=== PATIENT | male | born 1940 | race Caucasian/White ===

== ENCOUNTER 2025-02-28 13:14 | Inpatient (IN) | payer OTHER, MEDICARE ==
[~2025-02-28] VITALS: Ht 170.2 cm; Wt 81.6 kg
--- NOTE | 2025-02-28 13:34 | ELECTROCARDIOGRAPH REPORT ---
[facility] Test Date: 2025-02-28 Test Time: 13:31:52 Pat Name: NIDHI BOONE Department: [facility]-ER Patient ID: [facility]-[id number] Room: Gender: M Substitute School Nurse: : 1940 Requested By: TERESITA ALTAMIRANO Order Number: [id number] Reading MD: Measurements Intervals [place] Rate: 100 P: 48 AR: 206 QRS: 22 QRSD: 93 T: 141 QT: 338 QTc: 436 Interpretive Statements Sinus tachycardia LAE, consider biatrial enlargement Probable anteroseptal infarct, recent Lateral leads are also involved Baseline wander in lead(s) V2,V3 Please click the below link to view image of tracing.
[2025-02-28 13:41] LABS: MEAN PLATELET VOLUME 8.3 FL (7.4-10.4); RED CELL DISTRIBUTION WIDTH 14.9 % (11.5-14.5)
--- NOTE | 2025-02-28 13:45 | Physician Documentation ---
History of Present Illness ~ Chief Complaint: Vomiting Stated Complaint: NAUSEA Time Seen by MD: 13:24 Source: patient, EMS, EMS notes reviewed Mode of Arrival: EMS Exam Limitations: no limitations HPI Chief Complaint: Nausea vomiting Caveat: None Independent Historians: Paramedics History of Present Illness: Patient is an 85-year-old man brought in from home by paramedics for nausea and vomiting began earlier this morning. Patient says that he vomited twice. Paramedics gave Zofran to relieve his nausea. Nausea appears to have resolved. Patient denies any abdominal pain unless he is tries to sit up or stand. Patient has had multiple abdominal surgeries in the past and history of bowel obstructions. Review of systems: All systems were reviewed and are negative except for what is indicated in the history of present illness. Past Medical History: HTN, BPH, HLD Past Surgical History: Multiple abdominal surgeries Social History: No tobacco use, no alcohol use, no drug use Medications: Reviewed as documented Nursing Notes Allergies: Reviewed as documented in Nursing Notes Medication Reconciliation Allergies: Coded Allergies: No Known Allergies (Unverified , 02/28/25) Review of Systems All Other Systems at this time: Reviewed and Negative ROS Patient denies any other acute symptoms other than above. All other systems are negative Physical Exam Vital Signs: Temperature: 99.7, Source: Oral, Heart Rate: 100, Respiratory Rate: 15, BP: 137/64, Pulse Oximetry: 93, Weight: 81.600 Oxygen Flow Rate: 0 Pulse Oximetry Reflects: adequate oxygenation Physical Exam General Appearance: No distress, chronically ill-appearing HEENT: Normal OP, moist oral mucosa, PERRL, EOMI Neck: supple, normal ROM, trachea midline Pulmonary: No respiratory distress, CTA, BS equal Cardiac: RRR, no murmur, rub or gallop, GI: nondistended, soft, nontender, normal bowel sounds, no guarding, no rebound, dull to percussion, many abdominal wall scars Extremities: normal ROM, no swelling, non-tender Skin: intact, dry, warm, no rashes Neuro: AAOx3, speech is clear, no focal motor weakness Psych: normal affect, good eye contact, no apparent hallucination, normal speech Progress Results/Orders Results/Orders Orders - TERESITA ALTAMIRANO MD Urinalysis, Cult If Indicated (02/28/25 13:25) Ct Abdomen Pelvis (02/28/25 13:25) Monitor (02/28/25 13:25) Saline Lock (02/28/25 13:25) Nothing By Mouth (02/28/25 Dinner) Hs Troponin I W Calculations (02/28/25 15:25) Hs Troponin I W Calculations (02/28/25 16:25) Straight Cath For Urine Sample (02/28/25 13:25) Chest,Single View (02/28/25 13:45) Page Hospitalist (02/28/25 16:21) Fill Out Med Reconciliation (02/28/25 16:21) Completed Orders - TERESITA ALTAMIRANO MD Cbc/Diff (02/28/25:25) Lipase (02/28/25:25) Electrocardiogram (02/28/25:25) Ct Abdomen Pelvis (02/28/25 13:25) Hs Troponin I W Calculations (02/28/25:25) CMP (02/28/25 13:25) Chest,Single View (02/28/25 13:45) Furosemide Inj (Lasix Inj) (02/28/25 16:20) PBNP (02/28/25 13:27) Medications Received in ER Medications (Trade) Dose Ordered Sig/Zonia Route PRN Reason Start Time Stop Time Status Last Admin Dose Admin (Lasix inj) 60 mg ONCE ONCE IV 02/28/25 16:20 02/28/25 16:21 DC 02/28/25 16:47 60 MG Vital Signs 02/28/25 02/28/25 02/28/25 02/28/25 13:22 13:24 14:14 15:21 Temp 99.7 Pulse 99 100 100 Resp 15 15 15 22 B/P (MAP) 167/64 137/64 (88) 147/72 (97) Pulse Ox 94 93 98 O2 Flow Rate 0 0 0 Laboratory Tests Test 02/28/25 13:27 02/28/25 16:25 White Blood Count 23.0 H Red Blood Count 5.04 Hemoglobin 15.1 Hematocrit 44.2 Mean Corpuscular Volume 87.7 Mean Corpuscular Hemoglobin 30.0 Mean Corpuscular Hemoglobin Concent 34.2 Red Cell Distribution Width 14.9 H Platelet Count 127 L Mean Platelet Volume 8.3 Neutrophils (%) (Auto) 87.2 H Lymphocytes (%) (Auto) 2.0 L Monocytes (%) (Auto) 10.5 Eosinophils (%) (Auto) 0 Basophils (%) (Auto) 0.3 Neutrophils # (Auto) 20.1 H Lymphocytes # (Auto) 0.5 L Monocytes # (Auto) 2.4 H Eosinophils # (Auto) 0.0 Basophils # (Auto) 0.1 CBC Comment Sodium Level 132 L Potassium Level 3.8 Chloride Level 97 L Carbon Dioxide Level 23.9 L Anion Gap 11 Blood Urea Nitrogen 25 H Creatinine 1.48 H Estimated GFR/1.73 m2 45 BUN/Creatinine Ratio 16.9 Glucose Level 159 H Calcium Level 8.7 Total Bilirubin 1.7 H Aspartate Amino Transf (AST/SGOT) 23 Alanine Aminotransferase (ALT/SGPT) 22 Alkaline Phosphatase 79 Troponin I High Sensitivity 28 Pro-B-Type Natriuretic Peptide 4021 H Total Protein 7.2 Albumin 3.2 L Globulin 4.0 Albumin/Globulin Ratio 0.8 L Lipase 16 Chemistry Comments Medical Decision Making Findings Differential diagnosis includes but is not limited to: Small-bowel obstruction, GI bleed, sigmoid volvulus, pancreatitis, gastritis, cholecystitis, appendicitis, dehydration, electrolyte abnormalities, acute kidney injury, acute coronary syndrome, congestive heart failure EKG independent interpretation: Performed at 1:31 p.m.. Sinus tachycardia, heart rate 100, normal axis, Q-waves in V1 through V4 left atrial enlargement, nonspecific ST-T segments Chest x-ray, single view, indication: Abdominal pain Independent interpretation: Pulmonary vascular congestion, normal mediastinum, mild cardiomegaly. CTA abdomen pelvis without IV contrast, indication: Nausea and vomiting Impression: Moderate volume stool in the rectum. Otherwise, no acute finding. Laboratory data independent interpretation: CBC: Leukocytosis [id number] CMP: Renal insufficiency with a creatinine of 1.48 and a BUN of 25. Patient's baseline is unknown 1st troponin: 28 Urinalysis: Pending Emergency department course/medical decision-making: Patient presents with nausea and vomiting that resolved after paramedics gave him Zofran 4 mg IV. Cause with the nausea and vomiting is unknown. Patient's abdominal exam is unremarkable. Patient does have a leukocytosis for unexplained reasons. Urinalysis is pending. CT scan of the abdomen and pelvis was negative acute. Patient is found to have congestive heart failure and renal insufficiency. It is unknown if these are new diagnoses. Patient is given Lasix 60 mg IV. Recommend admission for continued treatment of heart failure, renal insufficiency and potential infection resulting in the leukocytosis. Consultation/communications: 4:50 p.m.: Case discussed with the resident hospitalist Dr. Love. He will evaluate the patient for admission. Departure Time of Disposition: 16:55 Disposition: 09 ADMITTED INPATIENT Admitted to Inpatient Unit: to hospitalist Admission Level of Care: Med/Surg with Tele Impression: Primary Impression: Acute congestive heart failure Qualified Codes: I50.9 - Heart failure, unspecified Additional Impressions: Generalized weakness Nausea and vomiting Qualified Codes: R11.2 - Nausea with vomiting, unspecified Renal insufficiency Leukocytosis Qualified Codes: D72.829 - Elevated white blood cell count, unspecified Education Educated: Patient Educated regarding: diagnosis, treatment Signature Scribe Signature: No scribe Attestation: No scribe TERESITA ALTAMIRANO MD Feb 28, 2025 13:45
[2025-02-28 13:58] LABS: CREATININE 1.48 MG/DL (0.60-1.10); TOTAL CARBON DIOXIDE 23.9 MMOL/L (24-32); eCRCL 34 ML/MIN; eGFR 45 ML/MIN
--- NOTE | 2025-02-28 14:09 | RADIOLOGY REPORT ---
CHEST RADIOGRAPH Indication: abdominal pain, vomiting Technique: Single frontal view of the chest was obtained Comparison: None FINDINGS: Lines and Tubes: None Lungs: No focal consolidation. Pleura: No effusion. No pneumothorax. Cardiomediastinal contours: Cardiomegaly. Bones: No acute osseous abnormality. IMPRESSION: Cardiomegaly with CHF.
--- NOTE | 2025-02-28 14:30 | RADIOLOGY REPORT ---
Exam: CT CT ABDOMEN PELVIS History: Abdominal Pain COMPARISON: None Technique: Multidetector spiral CT of the abdomen and pelvis was performed from lung bases to pubic s ymphysis. Intravenous contrast was administered during this examination. Portal venous imaging was o btained. Axial, coronal and sagittal multiplanar reformats were performed by the technologist on a [employer] workstation. Radiation Dose : 1. Abdomen/Pelvis: CTDIvol 17.3mGy, DLP 902.7 mGy*cm. Findings: Lung Bases: No acute or significant lung base finding. Normal heart size. No pleural or pericardial effusion. Liver: The liver is normal in size. No focal lesions. Normal hepatic vascular enhancement. Gallbladder and Biliary Tree: Unremarkable Spleen: Unremarkable Pancreas: The pancreas is normal in appearance without focal lesions or abnormal enhancement. Adrenal Glands: Unremarkable Kidneys: No hydronephrosis. Left midpole cyst measures 3.1 cm. Bladder: Unremarkable Bowel: The stomach is grossly normal in appearance. Diverticulosis. Moderate stool in the rectum. The appendix is not visualized; however, no secondary findings of acute appendicitis identified. Ascites: Absent Lymphadenopathy: No mesenteric, retroperitoneal or periportal lymphadenopathy. Abdominal Wall and Mesentery: Unremarkable. Vasculature: The visualized abdominal aorta is normal in size and caliber. There is calcified atheros clerotic plaque involving the aorta and its branches. Abdominal and pelvic vessels demonstrate normal enhancement. Pelvic Organs: Penile pump in-situ. Musculoskeletal: No aggressive focal bony lesions, acute fractures or dislocation. Degenerative changes of the spine. IMPRESSION: Moderate volume stool in the rectum. Otherwise, no acute finding.
[2025-02-28 16:45] LABS: PRO BRAIN NATRIURETIC PEPTIDE 4021 PG/ML (0-450)
[2025-02-28] MEDS: furosemide 10 MG/1 ML 10ml inj IV ONE (16:47)
[2025-02-28] MEDS ORDERED: potassium Cl 20 mEq SR tablet PO PRN ×2 (16:55)
[2025-02-28] MEDS ORDERED: ondansetron/PF 4mg/2ml inj IV PRN (16:55)
[2025-02-28] MEDS ORDERED: potassium Cl 40MEQ/1/2NS 520ml 520 ML IV PRN (16:55)
[2025-02-28] MEDS ORDERED: magnesium sulf-water 2g/50mL 50 ML IV PRN (16:55)
[2025-02-28] MEDS ORDERED: magnesium Cl slow-release 64mg tablet PO PRN (16:55)
[2025-02-28] MEDS ORDERED: magnesium sulf-water 4G/100mL 100 ML IV PRN (16:55)
[2025-02-28] MEDS ORDERED: magnesium hydroxide 30ml (MOM) UD suspension PO PRN (16:55)
[2025-02-28] MEDS ORDERED: mag hydrox/Alum hydrox/simeth 30ml oral suspension PO PRN (16:55)
[2025-02-28 17:50] LABS: LEUKOCYTE ESTERASE ,URINE SMALL (Neg); NITRITES, URINE NEGATIVE (Neg); OCCULT BLOOD,URINE MODERATE (Neg)
[2025-02-28] MEDS ORDERED: PRIM250T8 PO (17:54)
[2025-02-28] MEDS ORDERED: MULT-1085 PO (17:54)
[2025-02-28] MEDS ORDERED: FINA5TAB11 PO (17:55)
[2025-02-28 18:00] LABS: UA COLLECTION TYPE URINAL
[2025-02-28 18:02] LABS: MUCUS STRANDS NONE SEEN /LPF (Neg); SQUAMOUS EPITHELIAL CELL,UR FEW /LPF (FEW)
[2025-02-28] MEDS ORDERED: CALC500T63 PO (18:03)
[2025-02-28] MEDS ORDERED: TIOT4MIS8 (18:03)
[2025-02-28] MEDS ORDERED: TAMS-55 PO (18:03)
[2025-02-28] MEDS ORDERED: LISI20TA28 PO (18:03)
[2025-02-28] MEDS ORDERED: CLON-850 PO (18:03)
[2025-02-28] MEDS ORDERED: CARV25TA2 PO (18:03)
[2025-02-28] MEDS ORDERED: ASPI-1265 PO (18:03)
[2025-02-28] MEDS ORDERED: OXYB5TAB21 PO (18:03)
[2025-02-28] MEDS ORDERED: HYDR12.55 PO (18:03)
[2025-02-28] MEDS ORDERED: ATOR40TA PO (18:03)
--- NOTE | 2025-02-28 18:31 | HISTORY AND PHYSICAL-Residence ---
History & Physical Providers to CC Resident Creating Document: MERCEDES HURTADOTRUE, RES ~ History of Present Illness Primary Medical Doctor: [facility] Reason for Admit\Complaint: Mechanical fall History of Present Illness 85-year-old male patient with past medical history of hypertension, coronary artery disease s/p coronary stent, actinic keratosis, dyslipidemia, urinary incontinence, came to the hospital after a mechanical fall. The patient states that in the morning while he was walking from the living room to nephron door of his apartment he slipped and fell down hitting the back side of his head. As per patient the patient was trying to stand up and due to the pressure that he was exerting on his abdomen he started having some pain. The patient states that the house nurse saw him in the floor who decided to call to the ambulance and the patient was brought to the hospital. As per EMS the patient had an episode of vomiting while he was transported to the hospital. The patient normally uses a cane for walking but he was not using it this morning when he was trying to go to the front door. The patient denies losing consciousness, loss of control of urine or bowel movements. The patient currently denies any chest pain, shortness of breath, palpitations. Allergies: Coded Allergies: No Known Allergies (Unverified , 02/28/25) Home Medications Home Medications Active Reported Flomax* (Tamsulosin HCl) 0.4 Mg Cap.sr.24h 1 Cap PO DAILY 30 Days Stiolto Respimat Inhaler (10) (Tiotropium Br/Olodaterol HCl) 2.5 Mcg-2.5 Mcg/Actuation Mist.inhal Klonopin (Clonazepam) 0.5 Mg Tablet 0.5 Mg PO BID Oxybutynin Chloride 5 Mg Tablet 10 Mg PO Q12H 30 Days Lipitor* (Atorvastatin Calcium) 40 Mg Tablet 1 Tab PO DAILY 30 Days Aspirin 81 Mg Tab.chew 1 Tab PO DAILY 30 Days Lisinopril 20 Mg Tablet 1 Tab PO DAILY 30 Days Hydrochlorothiazide 12.5 Mg Tablet 1 Tab PO DAILY 30 Days Carvedilol 25 Mg Tablet 1 Tab PO Q12H 30 Days Calcium (Calcium Carbonate) 500 Mg Tablet 250 Mg PO DAILY 30 Days PROSCAR tablet (Finasteride) 5 Mg Tablet 5 Mg PO STEPHANY MYSOLINE tablet (Primidone) 250 Mg Tablet 50 Mg PO DAILY 30 Days Multi Vitamin Daily (Multivitamin) 1 Each Tablet 1 Tab PO DAILY 30 Days Past Medical History Past Medical History Hypertension taking carvedilol 25 mg b.i.d., hydrochlorothiazide/lisinopril 12.5/20 mg daily. Coronary artery disease S/P LAD stent in 1959. Actinic keratosis for which he uses fluorouracil cream. Obstructive sleep apnea for which he uses CPAP at night. Dyslipidemia taking atorvastatin 40 mg daily. Benign prostatic hyperplasia taking finasteride 5 mg daily, tamsulosin 0.4 mg daily. Anxiety taking clonazepam 0.5 mg b.i.d.. Urinary incontinence taking oxybutynin 10 mg daily. Past Surgical History Surgical History Comment Small bowel obstruction s/p surgical repair. Appendectomy. Coronary artery disease s/p coronary stent. Past Social History Smoking: Less than 1 pack/day (As per patient he smokes half to one pack a day for at least 40 years.) Alcohol Use: Rarely (As per patient he rarely drinks one beer a week. He used to be a heavy drinker but he quit in 1979.) Drug Use: Marijuana (He endorsed the use of marijuana several years ago.) Lives with: Alone Occupation: retired ([employer]) ROS Constitutional: Reports: other (The patient endorses fatigue for several years.); Denies: no symptoms reported, see HPI, chills, diaphoresis, fever, malaise, weakness Eyes: Denies: no symptoms reported, see HPI, pain, discharge, blurred vision, double vision, itching, photophobia, redness, tearing, other ENT: Denies: no symptoms reported, see HPI, ear pain, ear bleeding, ear discharge, hearing loss, ear ringing, nose pain, nose bleeding, nose congestion, nose discharge, throat pain, throat swelling, voice change, mouth pain, mouth bleeding, mouth swelling, other Respiratory: Reports: SOB with exertion (The patient endorses some shortness of breaths with walking approximately more than 100 ft.); Denies: no symptoms reported, see HPI, cough, orthopnea, shortness of breath, SOB at rest, stridor, wheezing, hemoptysis, pain with breathing, other Cardiovascular: Denies: no symptoms reported, see HPI, chest pain, left arm pain, diaphoresis, lightheadedness, syncope, edema, palpitations, irregular heart rate, other Gastrointestinal: Denies: no symptoms reported, see HPI, abdomen distended, abdominal pain, nausea, vomiting, diarrhea, constipated, melena, hematemesis, hematochezia, rectal bleeding, rectal pain, dysphagia, poor appetite, poor fluid intake, other Genitourinary: Reports: frequency (He endorses increased urinary frequency.); Denies: no symptoms reported, see HPI, burning, discharge, dysuria, flank pain, hematuria, incontinence, pain, decreased urine output, urgency, other Male Genitalia: Denies: no symptoms reported, see HPI, penile discharge, penile sore, testicular pain, testicular swelling, other Neurological: Denies: no symptoms reported, see HPI, speech problem, headache, dizziness, fainting, tingling, left sided numbness, right sided numbness, left sided weakness, right sided weakness, problems walking, unable to move lower ext, unable to move upper ext, petit mal seizures, tonic-clonic seizures, cognitive dysfunction, other Musculoskeletal: Denies: no symptoms reported, see HPI, pain, swelling, back pain, gout, joint pain, joint swelling, muscle pain, muscle swelling, muscle stiffness, neck pain, other Integumentary: Denies: no symptoms reported, see HPI, rash, itching, lesions, lumps, bruise(s), wound(s), laceration(s), dryness, change in color, other Allergic/Immunologic: Denies: no symptoms reported, see HPI, hives, itching, frequent infections, difficulty healing, other Hematologic/Lymphatic: Denies: no symptoms reported, see HPI, anemia, blood clots, easy bleeding, easy bruising, swollen glands, other Endocrine: Denies: no symptoms reported, see HPI, excessive sweating, flushing, intolerance to cold, intolerance to heat, increased hunger, increased thrist, increased urine, unexplained weight gain, unexplained weight loss, other Psychiatric: Denies: no symptoms reported, see HPI, depression, anxiety, sleeplessness, hopeless, suicidal, hallucinations, other Exam Vitals: Vital Signs Date Time Temp Pulse Resp B/P (MAP) Pulse Ox O2 Delivery O2 Flow Rate FiO2 02/28/25 17:09 100 30 150/55 (86) 97 02/28/25 15:21 0 02/28/25 13:22 99.7 Physical exam: General: Well alert, well oriented, not confused, not agitated, not in acute distress, well cooperated during the physical. HEENT: Conjunctive are pink, sclerae clear, no icterus, pupil is equal in both sides, reactive to light, no ear discharge, no pharyngeal erythema or an edema. Neck: Supple, no JVD, no lymphadenopathy and thyromegaly. Chest: Equal air entry on both lungs, no additional sounds no rhonchi no wheezing at the moment. Cardiovascular: S1-S2 regular sinus rhythm and, regular rate, no gallops, no rubs, no murmurs Abdomen: No visible peristalsis, Bowel sounds present on auscultation, soft, mild tenderness in the hypogastrium, no guarding, no rigidity, abdominal scar from previous surgeries. Extremities: No obvious deformities, no pitting edema bilaterally, capillary refill intact, peripheral pulsations are intact on both sides Central Nervous System: No focal neurological deficits, no motor or sensory weakness in all 4 extremities, could move all 4 extremities, 2+ deep tendon reflexes, negative Babinski. Musculoskeletal: No joint swelling, deformities, inflammations, and no scoliosis and back tenderness Skin: Warm and dry. Diagnostic Data Last Recorded Lab Results: 02/28/25 1327 02/28/25 1327 Counseling Services Smoking & Tobacco Cessation: 3-10 Minutes (I spent 12 minutes discussing smoking cessation with the patient including the risk of continuing to smoke: Lung cancer, stroke, heart attack, poor wound healing, increased in fascial wrinkling, cigarette smoke also leads a foul smell on clothing and fabrics, risk of MRSA skin infections. The expense of smoking cigarettes and how cigarettes have been scientifically engineered to be as addictive as humanly possible. ) Advance Care Planning Advanced Care plannin - 30 Minutes (I spent a total of 17 minutes on reviewing various resuscitative measures/ACP with the patient at the time of admission. The patient has decided on a full code status.) Additional Plan Assessment and plan: 85-year-old male patient came to the hospital after a mechanical fall. Mechanical fall: Head concussion: A: The patient endorsed that he had a mechanical fall in the morning hitting the back side of his head. The patient had one episode of vomiting while the patient was transferred to the emergency department. Plan: Follow-up head CT scan. Sepsis secondary to urinary tract infection/cystitis: Sepsis criteria: (heart rate> 90, RR> 20, WBC: 23.0, presence of source of infection): A: Urinalysis positive for urinary tract infection: Moderate occult blood, protein 100, 3+ bacteria, WBC 30-50, leukocyte esterase present. The patient endorsed increased urinary frequency. Mild tenderness in the hypogastrium on physical exam. Plan: Follow-up urine culture. Follow-up blood culture. Follow-up ESR, CRP, procalcitonin. Ceftriaxone 1 g IV daily. Culturelle [id number] mmu b.i.d. Possible acute kidney injury likely secondary to dehydration: A: Creatinine 1.48, unknown baseline creatinine. BUN/creatinine ratio 16.9, BUN 25. Plan: Follow-up urine lytes. NS at 80 mL/hour. Continue to monitor CMP. Mild hyponatremia: A: Sodium 132. Plan: Follow-up serum osmolality. NS at 80 mL/hour. Hypertension: A: Current blood pressure 174/60. Plan: Continue lisinopril 20 mg daily. Holding hydrochlorothiazide due to hyponatremia. H/O CAD s/p coronary stent: Continue aspirin 81 mg daily. H/o dyslipidemia: Follow-up lipid panel. Continue atorvastatin 40 mg daily. H/o GLEN: CPAP at night. H/o overactive bladder: Continue oxybutynin 10 mg daily. H/o tremor: Continue primidone 250 mg daily. H/o BPH: Tamsulosin 0.4 mg daily. Finasteride 5 mg daily. Code status: Full code DVT prophylaxis: SCDs, heparin. Analgesia/sedation: Tylenol Line/tube: PIV GI prophylaxis: Protonix Nutrition: Regular diet. PT: Ordered. Prognosis: Guarded Disposition: The patient will be admitted to PCU with telemetry. True Hurtado Internal Medicine Resident [facility] Date of Service: Feb 28, 2025 Billing Provider: TAM SHINE MD Common Visit Codes: 93707-HPFBPXT INP/OBS CARE (HIGH) Secondary Visit Codes: 10585-GJLPZPME CARE PLAN 30 MINUTES TRUE KING, RES Feb 28, 2025 18:31 TAM SHINE MD Mar 02, 2025 06:19
--- NOTE | 2025-02-28 18:48 | RADIOLOGY REPORT ---
CLINICAL HISTORY: head trauma TECHNIQUE: Helical imaging carried out from skull base to vertex without intravenous contrast. This e xam was performed according to our departmental dose optimization program. Up-to-date CT equipment an d radiation dose reduction techniques are utilized as appropriate. CTDIVol: 58.6 mGy DLP: 1046.88 mGy-cm WID: COMPARISON: None FINDINGS: Mild cerebral volume loss with concordant prominence of the subarachnoid spaces and ventricles. Moder ate patchy low attenuation in the cerebral white matter consistent with nonspecific white matter dise ase. Chronic lacunar infarct in the right basal ganglia. There is no midline shift or mass effect. The [place] white matter interfaces are maintained. The basal cisterns are patent. There is no evidence of acute intracranial hemorrhage or extra-axial fluid ender ection. The mastoid air cells and visualized paranasal sinuses are well-aerated. Prior ocular lens re placement IMPRESSION: No acute intracranial abnormality. Mild cerebral volume loss and moderate chronic microvascular ischemic change. Chronic lacunar infarct in the right basal ganglia.
[2025-02-28] MEDS: normal saline 1000ml 1,000 ML IV SCH (18:50)
[2025-02-28] MEDS ORDERED: ipratropium/albuterol 3ml nebule NEB PRN (19:00)
--- NOTE | 2025-02-28 19:06 | CARDIOLOGY REPORT ---
APPROVED REPORT EXAM: Comprehensive 2D, Doppler, and color-flow Echocardiogram. Patient Location: ED10 Blood Pressure: 150/55 mmHg Heart Rate: 98 bpm Rhythm: NSR Indications CHF Pro BNP 4021 Alumni Secretary is Anai Whaley MD No previous echo 2D Dimensions LA Diam3.5 cm IVSd 1.4 (0.7-1.1cm) Aortic Root(2D) 3.5 cm LVOT Diameter 2.30 (1.8-2.4cm) Ao Asc Diam.4.01 cmIVC 17.43 mm M-Mode Dimensions IVSd 1.39 (0.7-1.1cm) LVDd 4.06 (4.0-5.6cm) PWd 1.43 (0.7-1.1cm) IVSs 1.65 cm MV EPSS 0.8 (<0.5cm) LVDs 2.64 (2.0-3.8cm) FS (%) 35 % PWs 1.65 cm ESV(Teich) 25.5 ml LVEF(%) 65 (>50%) Aortic Valve AoV Peak Huan. 177.7 cm/s AoV VTI 28.8 cm AO Peak GR. 12.6 mmHg AO Mean GR. 6 mmHg LVOT VTI 26.50 cm LVOT Peak Huan. 151.0 cm/s TOBIAS(VTI)/BSA 3.83 cm2/m2 TOBIAS (VTI) 3.83 cm2 AI P 1/2 Time 340 ms Mitral Valve MV E Velocity 62.2 cm/s MV Peak Gr. 8 mmHg MV DECEL TIME 200 ms MV A Velocity 121.4 cm/s MV PHT 60 ms E/A Ratio 0.5 MVA (PHT) 3.67 cm2 MV PKes407.3 cm/s TDI Medial E' P. V 9.45 cm/s E/Medial E' 6.6 Tricuspid Valve RAP ESTIMATE 10 mmHg Pulmonary Vein S1 Velocity 44.8 cm/s D2 Velocity 35.5 cm/s PVa Iivzolwh72.1 cm/s PVa Agtmprdq648 msec LEFT VENTRICLE LV is normal in size with moderate concentric hypertrophy. Overall systolic function appears normal. LVEF is 65%. RIGHT VENTRICLE RV appears normal in size and function. ATRIA The left atrium size is normal. AORTIC VALVE Trileaflet AV appears sclerotic without stenosis. Mild to moderate insufficiency. MITRAL VALVE MV is thickened with mild annular calcification and no stenosis. Trace mitral regurgitation. TRICUSPID VALVE The tricuspid valve is normal in structure. Trace tricuspid regurgitation. PULMONIC VALVE The pulmonary valve is normal in structure. Trace pulmonic regurgitation. GREAT VESSELS The aortic root is normal in size. Ascending aorta measured at 4.0 cm. The IVC is normal in size and collapses >50% with inspiration. PERICARDIUM There is no pericardial effusion. Other Information Study Quality: Adequate Conclusion LV is normal in size with moderate concentric hypertrophy. Overall systolic function appears normal. LVEF is 65%. RV appears normal in size and function. The left atrium size is normal. Trileaflet AV appears sclerotic without stenosis. Mild to moderate insufficiency. MV is thickened with mild annular calcification and no stenosis. Trace mitral regurgitation. The tricuspid valve is normal in structure. Trace tricuspid regurgitation. The pulmonary valve is normal in structure. Trace pulmonic regurgitation. Ascending aorta measured at 4.0 cm. There is no pericardial effusion.
[2025-02-28] MEDS: CefTRIAXone/D5W-Rocephin 1gm 50 ML IV SCH (19:28)
[2025-02-28] MEDS: nicotine 21mg patch - 24 hr TD SCH (19:29)
[2025-02-28] MEDS: K and/or MAG REPLACEMENT MC SCH (20:00)
[2025-02-28 20:17] LABS: OSMOLALITY 291 MOSM/K (280-300)
[2025-02-28 20:22] LABS: CREATININE,URINE RANDOM 93.0 MG/DL; TOTAL PROTEIN,URINE RANDOM 110.9 MG/DL; UA UREA RANDOM 402.0 MG/DL
[2025-02-28 20:23] VITALS: PULSE 93; RESP 16; O2SAT 94
[2025-02-28] MEDS: lactobacillus rhamnosus 10,000 MMU CELLS/CAPSULE PO SCH (20:57)
[2025-02-28 21:13] LABS: OSMOLALITY UA 388.0 MOSM/K (50-1400)
[2025-02-28] MEDS: heparin, porcine 5000 units/ml vial SQ SCH (21:14)
[2025-02-28 22:05] VITALS: BP 161/62; PULSE 93; RESP 20; TEMP 98.3; O2SAT 95
[2025-02-28] MEDS: hydrALAZINE 20mg/ml inj. IV ONE (23:22)
[2025-02-28 23:43] VITALS: RESP 20; O2SAT 95
[2025-03-01] VITALS (9 sets, daily range): BP systolic 131–175; BP diastolic 50–71; PULSE 82–91; RESP 16–28; TEMP 97.4–98.6; O2SAT 92–97
--- NOTE | 2025-03-01 06:24 | ELECTROCARDIOGRAPH REPORT ---
[facility] Test Date: 2025-03-01 Test Time: 02:39:45 Pat Name: NIDHI BOONE Department: 3rd FLOOR PCU Room: [place] [address] Gender: M Channel Marketing Manager: : 1940 Requested By: TAM SHINE Order Number: [id number] Reading MD: Dr. SOUMYA Santos Measurements Intervals [place] Rate: 90 P: 67 OK: 214 QRS: 44 QRSD: 95 T: 114 QT: 362 QTc: 443 Interpretive Statements Sinus rhythm Borderline prolonged OK interval Probable anterior infarct, age indeterminate Lateral leads are also involved Electronically Signed On 03-02-2025 20:18:[address] SOUMYA Santos Please click the below link to view image of tracing.
[2025-03-01 06:57] LABS: MEAN PLATELET VOLUME 8.8 FL (7.4-10.4); RED CELL DISTRIBUTION WIDTH 14.8 % (11.5-14.5)
[2025-03-01 07:17] LABS: CHOL/HDL RATIO 2.1 (0.00-4.99); CREATININE 1.41 MG/DL (0.60-1.10); LDL CHOLESTEROL 43 MG/DL (50-100); TOTAL CARBON DIOXIDE 21.8 MMOL/L (24-32); eCRCL 36 ML/MIN; eGFR 48 ML/MIN
[2025-03-01] MEDS: pantoprazole 40mg Tablet.DR PO SCH (08:20)
[2025-03-01] MEDS: multivitamins, therapeutics tablet PO SCH (08:21)
[2025-03-01] MEDS: calcium carbonate 500mg tablet PO SCH (08:27)
--- NOTE | 2025-03-01 11:16 | PROGRESS NOTE- Residence ---
Progress Note - Resident Providers to CC Resident Creating Document: MIGUEL KING RES ~ Antibiotic Timeout Antibiotic Ordered?: Yes Subjective The patient has been evaluated at bedside. The patient reports significant improvement of symptoms. Objective Vital Signs Date Time Temp Pulse Resp B/P (MAP) Pulse Ox O2 Delivery O2 Flow Rate FiO2 03/01/25 08:25 83 03/01/25 06:00 98.5 22 147/53 (84) 92 Room Air 02/28/25 21:36 0 02/28/25 20:23 21 Physical exam: General: Well alert, well oriented, not confused, not agitated, not in acute distress, well cooperated during the physical. HEENT: Conjunctive are pink, sclerae clear, no icterus, pupil is equal in both sides, reactive to light, no ear discharge, no pharyngeal erythema or an edema. Neck: Supple, no JVD, no lymphadenopathy and thyromegaly. Chest: Equal air entry on both lungs, no additional sounds no rhonchi no wheezing at the moment. Cardiovascular: S1-S2 regular sinus rhythm and, regular rate, no gallops, no rubs, no murmurs Abdomen: No visible peristalsis, Bowel sounds present on auscultation, soft, mild tenderness in the hypogastrium, no guarding, no rigidity, abdominal scar from previous surgeries. Extremities: No obvious deformities, no pitting edema bilaterally, capillary refill intact, peripheral pulsations are intact on both sides Central Nervous System: No focal neurological deficits, no motor or sensory weakness in all 4 extremities, could move all 4 extremities, 2+ deep tendon reflexes, negative Babinski. Musculoskeletal: No joint swelling, deformities, inflammations, and no scoliosis and back tenderness Skin: Warm and dry. Result Diagram: 03/01/25 0610 03/01/25 0610 Assessment Assessment 85-year-old male patient came to the hospital after a mechanical fall. Plan Plan Sepsis secondary to urinary tract infection/cystitis: Sepsis criteria: (heart rate> 90, RR> 20, WBC: 23.0, presence of source of infection): A: Urinalysis positive for urinary tract infection: Moderate occult blood, protein 100, 3+ bacteria, WBC 30-50, leukocyte esterase present. The patient endorsed increased urinary frequency. Mild tenderness in the hypogastrium on physical exam. Urine culture positive for Gram-negative rods. Blood culture positive for Gram-negative rods. Plan: Pending sensitivity of urine and blood culture. Ceftriaxone 1 g IV daily. Culturelle [address] mmu b.i.d. Mechanical fall: Head concussion: A: The patient endorsed that he had a mechanical fall in the morning hitting the back side of his head. The patient had one episode of vomiting while the patient was transferred to the emergency department. CT scan of the head: No acute intracranial abnormality. Mild cerebral volume loss and moderate chronic microvascular ischemic change. Chronic lacunar infarct in the right basal ganglia. Plan: Continue monitoring. Possible acute kidney injury likely secondary to dehydration: A: Vasomotor nephropathy: Creatinine 1.48, unknown baseline creatinine. Fractional excretion of sodium: 0.8%. Fractional excretion of urea: 60.9%. BUN/creatinine ratio 25.5. Plan: Continue NS at 80 mL/hour. Continue to monitor CMP. Mild hyponatremia: Isotonic hyponatremia: A: Sodium 130. Osmolality 291. Plan: NS at 80 mL/hour due to kidney function. Hypertension: A: Current blood pressure 147/53. Plan: Continue lisinopril 20 mg daily. Holding hydrochlorothiazide due to hyponatremia. H/O CAD s/p coronary stent: Continue aspirin 81 mg daily. H/o dyslipidemia: A: Triglycerides 102, LDL 106, HDL 51. Continue atorvastatin 40 mg daily. H/o GLEN: CPAP at night. H/o overactive bladder: Continue oxybutynin 10 mg daily. H/o tremor: Continue primidone 250 mg daily. H/o BPH: Tamsulosin 0.4 mg daily. Finasteride 5 mg daily. Code status: Full code DVT prophylaxis: SCDs, heparin. Analgesia/sedation: Tylenol Line/tube: PIV GI prophylaxis: Protonix Nutrition: Regular diet. PT: Ordered. Prognosis: Guarded Disposition: Continue medical management. Miguel Love Internal Medicine Resident [facility] Date of Service: Mar 01, 2025 Billing Provider: TAM SHINE MD Common Visit Codes: [id number] INP/OBS CARE(HIGH) MIGUEL KING, RES Mar 01, 2025 11:16 TAM SHINE MD Mar 02, 2025 06:20
[2025-03-01 17:12] LABS: CHOL/HDL RATIO 2.1 (0.00-4.99); LDL CHOLESTEROL 41 MG/DL (50-100)
[2025-03-01] MEDS: hydrALAZINE 20mg/ml inj. IV PRN (23:28)
[2025-03-02] VITALS (11 sets, daily range): BP systolic 114–160; BP diastolic 38–77; PULSE 59–99; RESP 13–28; TEMP 96.7–98.9; O2SAT 91–98
[2025-03-02 07:01] LABS: MEAN PLATELET VOLUME 8.5 FL (7.4-10.4); RED CELL DISTRIBUTION WIDTH 14.8 % (11.5-14.5)
[2025-03-02 07:29] LABS: CREATININE 1.33 MG/DL (0.60-1.10); TOTAL CARBON DIOXIDE 26.4 MMOL/L (24-32); eCRCL 38 ML/MIN; eGFR 51 ML/MIN
--- NOTE | 2025-03-02 13:49 | PROGRESS NOTE- Residence ---
Progress Note - Resident Providers to CC Resident Creating Document: MIGUEL KING, RES ~ Antibiotic Timeout Antibiotic Ordered?: Yes Subjective The patient has been evaluated at bedside. The patient currently denies any symptoms, rehab placement discussed with the patient who agreed. Objective Vital Signs Date Time Temp Pulse Resp B/P (MAP) Pulse Ox O2 Delivery O2 Flow Rate FiO2 03/02/25 11:00 98.9 72 17 148/62 (90) 94 Room Air 03/02/25 08:18 0 21 Physical exam: General: Well alert, well oriented, not confused, not agitated, not in acute distress, well cooperated during the physical. HEENT: Conjunctive are pink, sclerae clear, no icterus, pupil is equal in both sides, reactive to light, no ear discharge, no pharyngeal erythema or an edema. Neck: Supple, no JVD, no lymphadenopathy and thyromegaly. Chest: Equal air entry on both lungs, presence of bibasilar crackles. Cardiovascular: S1-S2 regular sinus rhythm and, regular rate, no gallops, no rubs, no murmurs Abdomen: No visible peristalsis, Bowel sounds present on auscultation, soft, mild tenderness in the hypogastrium, no guarding, no rigidity, abdominal scar from previous surgeries. Extremities: No obvious deformities, no pitting edema bilaterally, capillary refill intact, peripheral pulsations are intact on both sides Central Nervous System: No focal neurological deficits, no motor or sensory weakness in all 4 extremities, could move all 4 extremities, 2+ deep tendon reflexes, negative Babinski. Musculoskeletal: No joint swelling, deformities, inflammations, and no scoliosis and back tenderness Skin: Warm and dry. Result Diagram: 03/02/2563003/02/25630 Assessment Assessment 85-year-old male patient came to the hospital after a mechanical fall. Plan Plan Sepsis secondary to urinary tract infection/cystitis: Sepsis criteria: (heart rate> 90, RR> 20, WBC: 23.0, presence of source of infection): A: Urinalysis positive for urinary tract infection: Moderate occult blood, protein 100, 3+ bacteria, WBC 30-50, leukocyte esterase present. The patient endorsed increased urinary frequency. Mild tenderness in the hypogastrium on physical exam. Urine culture positive for Gram-negative rods. Blood culture positive for Gram-negative rods. 03/02/2025: Urine culture growing Enterobacter cloacae complex. Plan: Pending sensitivity of blood culture. Ceftriaxone 1 g IV daily day 3. Culturelle [address] mmu b.i.d. Possible acute kidney injury likely secondary to dehydration: A: Vasomotor nephropathy: Creatinine 1.48, unknown baseline creatinine. Fractional excretion of sodium: 0.8%. Fractional excretion of urea: 60.9%. BUN/creatinine ratio 25.5. 03/02/2025: Creatinine levels trended down from 1.48 to 1.33. Crackles evidenced on physical exam today. Plan: Discontinue IV fluids. Regarding the crackles evidenced on physical exam today. Continue to monitor CMP. Acute exacerbation of congestive heart failure with preserved ejection fraction: A: Crackles evidenced on physical exam today. Echocardiogram: LV is normal in size with moderate concentric hypertrophy. Overall systolic function appears normal. LVEF is 65%. RV appears normal in size and function. The left atrium size is normal. Trileaflet AV appears sclerotic without stenosis. Mild to moderate insufficiency. MV is thickened with mild annular calcification and no stenosis. Trace mitral regurgitation. ProBNP on admission: 4021. Plan: Follow-up proBNP Lasix 20 mg IV b.i.d. Mechanical fall: Head concussion: A: The patient endorsed that he had a mechanical fall in the morning hitting the back side of his head. The patient had one episode of vomiting while the patient was transferred to the emergency department. CT scan of the head: No acute intracranial abnormality. Mild cerebral volume loss and moderate chronic microvascular ischemic change. Chronic lacunar infarct in the right basal ganglia. Plan: Continue monitoring. Mild hyponatremia-resolved: Isotonic hyponatremia: A: Sodium 130. Osmolality 291. 03/02/2025: Sodium levels today within reference range: 136. Plan: Discontinue IV fluids. Continue to monitor sodium levels with CMP. Hypertension: A: Current blood pressure 147/53. 03/02/2025: Blood pressure today 159/50 Plan: Increase lisinopril to 30 mg daily. On hydralazine 10 mg q.6h PRN for SBP more than 160 mmHg or DBP more than 90 mmHg. Holding hydrochlorothiazide due to hyponatremia. H/O CAD s/p coronary stent: Continue aspirin 81 mg daily. H/o dyslipidemia: A: Triglycerides 102, LDL 106, HDL 51. Continue atorvastatin 40 mg daily. H/o GLEN: CPAP at night. H/o overactive bladder: Continue oxybutynin 10 mg daily. H/o tremor: Continue primidone 250 mg daily. H/o BPH: Tamsulosin 0.4 mg daily. Finasteride 5 mg daily. Code status: Full code DVT prophylaxis: SCDs, heparin. Analgesia/sedation: Tylenol Line/tube: PIV GI prophylaxis: Protonix Nutrition: Regular diet. PT: Recommends post-acute care. Prognosis: Guarded Disposition: Continue medical management. Case management actively working for placement. Miguel Love Internal Medicine Resident [facility] Date of Service: Mar 02, 2025 Billing Provider: TAM SHINE MD Common Visit Codes: [id number] INP/OBS CARE(HIGH) MIGUEL KING, RES Mar 02, 2025 13:49 TAM SHINE MD Mar 03, 2025 06:58
[2025-03-02 14:45] LABS: PRO BRAIN NATRIURETIC PEPTIDE 1921 PG/ML (0-450)
[2025-03-03 07:00] LABS: CREATININE 1.23 MG/DL (0.60-1.10); PRO BRAIN NATRIURETIC PEPTIDE 1236 PG/ML (0-450); TOTAL CARBON DIOXIDE 22.5 MMOL/L (24-32); eCRCL 41 ML/MIN; eGFR 56 ML/MIN
[2025-03-03 07:05] VITALS: BP 171/59; PULSE 74; RESP 28; TEMP 97.7; O2SAT 95
[2025-03-03 08:00] VITALS: RESP 18
[2025-03-03 08:12] LABS: MEAN PLATELET VOLUME 8.8 FL (7.4-10.4); RED CELL DISTRIBUTION WIDTH 14.5 % (11.5-14.5)
[2025-03-03 08:13] VITALS: PULSE 81; RESP 18; O2SAT 95
[2025-03-03] MEDS: levoFLOXACIN-Levaquin 500mg/D5 100 ML IV SCH (08:53)
[2025-03-03 09:01] LABS: LYMPHOCYTES % (MANUAL) 9.0 % (21-51); MONOCYTES % (MANUAL) 18.0 % (2-12); NEUTROPHILS % (MANUAL) 73.0 % (42-75)
[2025-03-03 09:02] LABS: PLATELET ESTIMATE DECREASED
[2025-03-03 10:52] VITALS: BP 135/47; PULSE 72; RESP 14; TEMP 97.6; O2SAT 96
--- NOTE | 2025-03-03 14:47 | DISCHARGE SUMMARY-Residence ---
Discharge Summary Providers to CC Resident Creating Document: SHAN JESUS RES ~ Discharge Summary Admission Diagnosis: possible congestive heart failure Hospital Course DATE OF ADMISSION: 02/28/2025 DATE OF DISCHARGE: 03/03/2025 Discharge Diagnosis\Comment: Sepsis secondary to urinary tract infection Acute kidney injury secondary to dehydration Acute exacerbation of congestive heart failure with preserved ejection fraction Mechanical fall Mild isotonic hyponatremia-resolved Hypertension Coronary artery disease status post stenting Dyslipidemia Obstructive sleep apnea Overactive bladder Benign prostatic hyperplasia Operations\Procedures: None Consultants: None Complications: None Condition on DC: Stable New Medications: Lisinopril (Lisinopril) 30 Mg Tablet 1 TAB PO DAILY for 30 Days, #30 TAB 0 Refills Continued Medications: Aspirin (Aspirin) 81 Mg Tab.chew 1 TAB PO DAILY for 30 Days, #30 TAB Atorvastatin Calcium* (Lipitor*) 40 Mg Tablet 1 TAB PO DAILY for 30 Days, #30 TAB Calcium Carbonate (Calcium) 500 Mg Tablet 250 MG PO DAILY for indigestion for 30 Days, #30 TAB 0 Refills Carvedilol (Carvedilol) 25 Mg Tablet 1 TAB PO Q12H for 30 Days, #60 TAB 0 Refills Clonazepam (Klonopin) 0.5 Mg Tablet 0.5 MG PO BID, TAB Finasteride (PROSCAR tablet) 5 Mg Tablet 5 MG PO DAILY, TAB Multivitamin (Multi Vitamin Daily) 1 Each Tablet 1 TAB PO DAILY for 30 Days, #30 TAB 0 Refills Primidone (MYSOLINE tablet) 250 Mg Tablet 50 MG PO DAILY for 30 Days, #60 TAB 0 Refills Tamsulosin Hcl* (Flomax*) 0.4 Mg Cap.sr.24h 1 CAP PO DAILY for 30 Days, #30 CAP Tiotropium Br/Olodaterol HCl (Stiolto Respimat Inhaler (10)) 2.5 Mcg-2.5 Mcg/Actuation Mist.inhal Discontinued Medications: Hydrochlorothiazide (Hydrochlorothiazide) 12.5 Mg Tablet 1 TAB PO DAILY for 30 Days, #30 TAB 0 Refills Lisinopril (Lisinopril) 20 Mg Tablet 1 TAB PO DAILY for 30 Days, #30 TAB Discharge Summary: History of Present Illness 85-year-old male patient with past medical history of hypertension, coronary artery disease s/p coronary stent, actinic keratosis, dyslipidemia, urinary incontinence, came to the hospital after a mechanical fall. The patient states that in the morning while he was walking from the living room to the door of his apartment he slipped and fell down hitting the back side of his head. As per patient the patient was trying to stand up and due to the pressure that he was exerting on his abdomen he started having some pain. The patient states that the house nurse saw him in the floor who decided to call to the ambulance and the patient was brought to the hospital. As per EMS the patient had an episode of vomiting while he was transported to the hospital. The patient normally uses a cane for walking but he was not using it this morning when he was trying to go to the front door. The patient denies losing consciousness, loss of control of urine or bowel movements. The patient currently denies any chest pain, shortn ess of breath, palpitations. Hospital course CT came back negative for bleed due to fall. Urine culture and blood culture came back positive with Enterobacter cloace. He was diagnosed with sepsis secondary to urinary tract infection due to tachycardia, tachypnea, high WBC count. He was treated with antibiotics ceftriaxone 1 g IV and switched to levofloxacin p.o. on discharge. He had mild hyponatremia which resolved after stopping IV fluids. He had few episodes of high blood pressure during his course of admission. his antihypertensive medications and dosage was changed to keep his blood pressure in control. PT recommended acute care facility before going home. Vital Signs Date Time Temp Pulse Resp B/P (MAP) Pulse Ox O2 Delivery O2 Flow Rate FiO2 03/03/25 10:52 97.6 72 14 135/47 (76) 96 03/03/25 08:13 Room Air* 0 21 Physical examination General: Well alert, well oriented, not confused, not agitated, not in acute distress, well cooperated during the physical. HEENT: Conjunctive are pink, sclerae clear, no icterus, pupil is equal in both sides, reactive to light, no ear discharge, no pharyngeal erythema or an edema. Neck: Supple, no JVD, no lymphadenopathy and thyromegaly. Chest: Equal air entry on both lungs, presence of bibasilar crackles. Cardiovascular: S1-S2 regular sinus rhythm and, regular rate, no gallops, no rubs, no murmurs Abdomen: No visible peristalsis, Bowel sounds present on auscultation, soft, mild tenderness in the hypogastrium, no guarding, no rigidity, abdominal scar from previous surgeries. Extremities: No obvious deformities, no pitting edema bilaterally, capillary refill intact, peripheral pulsations are intact on both sides Central Nervous System: No focal neurological deficits, no motor or sensory weakness in all 4 extremities, could move all 4 extremities, 2+ deep tendon reflexes, negative Babinski. Musculoskeletal: No joint swelling, deformities, inflammations, and no scoliosis and back tenderness Skin: Warm and dry. Laboratory Tests Test 03/01/25 16:44 03/02/25 06:31 03/02/25 09:23 03/03/25 04:44 Triglycerides Level 116 MG/DL Cholesterol Level 94 MG/DL LDL Cholesterol 41 MG/DL HDL Cholesterol 44 MG/DL Cholesterol/HDL Ratio 2.1 Chemistry Comments White Blood Count 9.7 X10'3 Red Blood Count 4.81 X10'6 Hemoglobin 14.3 g/dl Hematocrit 42.4 % Mean Corpuscular Volume 88.2 FL Mean Corpuscular Hemoglobin 29.7 PG Mean Corpuscular Hemoglobin Concent 33.7 g/dL Red Cell Distribution Width 14.8 % Platelet Count 104 X10'3 Mean Platelet Volume 8.5 FL Neutrophils (%) (Auto) 85.8 % Lymphocytes (%) (Auto) 3.8 % Monocytes (%) (Auto) 10.1 % Eosinophils (%) (Auto) 0 % Basophils (%) (Auto) 0.3 % Neutrophils # (Auto) 8.3 X10'3 Lymphocytes # (Auto) 0.4 X10'3 Monocytes # (Auto) 1.0 X10'3 Eosinophils # (Auto) 0.0 X10'3 Basophils # (Auto) 0.0 X10'3 CBC Comment Sodium Level 136 MMOL/L 138 MMOL/L Potassium Level 4.0 MMOL/L 3.6 MMOL/L Chloride Level 98 MMOL/L 105 MMOL/L Carbon Dioxide Level 26.4 MMOL/L 22.5 MMOL/L Anion Gap 12 11 Blood Urea Nitrogen 32 MG/DL 45 MG/DL Creatinine 1.33 MG/DL 1.23 MG/DL Estimated GFR/1.73 m2 51 ML/MIN 56 ML/MIN BUN/Creatinine Ratio 24.1 36.6 Glucose Level 108 MG/DL 104 MG/DL Lactic Acid Level 2.3 MMOL/L 1.3 MMOL/L Calcium Level 8.1 MG/DL 8.3 MG/DL Magnesium Level 1.8 MG/DL 2.1 MG/DL Total Bilirubin 0.9 MG/DL 0.7 MG/DL Aspartate Amino Transf (AST/SGOT) 61 U/L 122 U/L Alanine Aminotransferase (ALT/SGPT) 50 U/L 98 U/L Alkaline Phosphatase 77 IU/L 65 IU/L Pro-B-Type Natriuretic Peptide 1921 PG/ML 1236 PG/ML Total Protein 7.0 G/DL 6.1 G/DL Albumin 2.7 G/DL 2.4 G/DL Globulin 4.3 G/DL 3.7 G/DL Albumin/Globulin Ratio 0.6 0.6 Test 03/03/25 07:42 White Blood Count 6.6 X10'3 Red Blood Count 4.33 X10'6 Hemoglobin 13.1 g/dl Hematocrit 37.9 % Mean Corpuscular Volume 87.4 FL Mean Corpuscular Hemoglobin 30.2 PG Mean Corpuscular Hemoglobin Concent 34.5 g/dL Red Cell Distribution Width 14.5 % Platelet Count 103 X10'3 Mean Platelet Volume 8.8 FL Neutrophils (%) (Auto) 71.0 % Lymphocytes (%) (Auto) 9.9 % Monocytes (%) (Auto) 18.0 % Eosinophils (%) (Auto) 0.8 % Basophils (%) (Auto) 0.3 % Neutrophils # (Auto) 4.7 X10'3 Lymphocytes # (Auto) 0.7 X10'3 Monocytes # (Auto) 1.2 X10'3 Eosinophils # (Auto) 0.1 X10'3 Basophils # (Auto) 0.0 X10'3 CBC Comment Differential Total Cells Counted 100 Neutrophils % (Manual) 73.0 % Lymphocytes % (Manual) 9.0 % Monocytes % (Manual) 18.0 % Platelet Estimate Decreased Red Blood Cell Morphology Normal Basophilic Stippling Imaging: Head CT No acute intracranial abnormality. Mild cerebral volume loss and moderate chronic microvascular ischemic change. Chronic lacunar infarct in the right basal ganglia. Echo LV is normal in size with moderate concentric hypertrophy. Overall systolic function appears normal. LVEF is 65%.RV appears normal in size and function. The left atrium size is normal. Trileaflet AV appears sclerotic without stenosis. Mild to moderate insufficiency. MV is thickened with mild annular calcification and no stenosis. Trace mitral regurgitation. The tricuspid valve is normal in structure. Trace tricuspid regurgitation. The pulmonary valve is normal in structure. Trace pulmonic regurgitation. Ascending aorta measured at 4.0 cm. There is no pericardial effusion. Chest x-ray:Cardiomegaly with CHF. Abdomen and pelvis CT: Moderate volume stool in the rectum. Otherwise, no acute finding. Discharge course: Follow up with your primary care [facility] to a [facility]rologist in view of recurrent UTI, overactive bladder. Follow up with the urologist within one week Visit emergency in case of any acute symptoms including fall, burning micturition, fever, altered mental status. Continue antibiotic levofloxacin 750 mg p.o. b.i.d. for 10 days *Problems/Diagnosis: (1) Sepsis Status: Acute (2) Urinary tract infection Status: Acute (3) Acute kidney injury Status: Acute (4) COPD exacerbation Status: Acute (5) Acute exacerbation of CHF (congestive heart failure) Status: Acute (6) Accident due to mechanical fall without injury Status: Acute (7) Hyponatremia Status: Acute (8) Hypertension Status: Chronic (9) Coronary artery disease Status: Chronic (10) Dyslipidemia Status: Chronic (11) Obstructive apnea Status: Chronic (12) Overactive bladder Status: Chronic (13) BPH (benign prostatic hyperplasia) Status: Chronic Total Time Spent on D/C: > 30 Minutes Date of Service: Mar 03, 2025 Billing Provider: TAM SHINE MD, SHIVANI, RES Mar 03, 2025 14:16 KAITLIN REYNA, RES Mar 03, 2025 18:59 TAM SHINE MD Mar 05, 2025 06:36
[2025-03-03] MEDS ORDERED: PRIM250T8 PO (16:28)
[2025-03-03] MEDS ORDERED: OXYB5TAB21 PO (16:28)
[2025-03-03] MEDS ORDERED: LISI20TA28 PO (16:28)
== END 2025-03-03 16:10 | DRG 871 ==
LOC: ER 13:15 → ED HOLD 16:55 → PCU 3S 21:45 → SUR 3N 03-02 17:03
PROVIDERS: ADMIT Internal Medicine; ATTEND Internal Medicine
PROC: BW211ZZ Computerized Tomography (CT Scan) of Abdomen and Pelvis using Low Osmolar Contrast (ICD-10-PCS; principal; 2025-02-28)
DX: A41.81 Sepsis due to Enterococcus (principal); I50.33 Acute on chronic diastolic (congestive) heart failure; N17.0 Acute kidney failure with tubular necrosis; E87.1 Hypo-osmolality and hyponatremia; I25.10 Atherosclerotic heart disease of native coronary artery without angina pectoris; E78.5 Hyperlipidemia, unspecified; G47.33 Obstructive sleep apnea (adult) (pediatric); F41.9 Anxiety disorder, unspecified; N40.1 Benign prostatic hyperplasia with lower urinary tract symptoms; N39.498 Other specified urinary incontinence; N30.90 Cystitis, unspecified without hematuria; I11.0 Hypertensive heart disease with heart failure; S06.0X0A Concussion without loss of consciousness, initial encounter; W18.39XA Other fall on same level, initial encounter; E86.0 Dehydration; N32.81 Overactive bladder; Z95.5 Presence of coronary angioplasty implant and graft; Z79.82 Long term (current) use of aspirin; Y93.89 Activity, other specified; Y92.89 Other specified places as the place of occurrence of the external cause; Y99.8 Other external cause status
CPT/HCPCS: 36415; 70450; 71045; 74176; 80053; 80061; 81001; 82248; 82570; 83036; 83605; 83690; 83735; 83880; 83930; 83935; 84145; 84156; 84300; 84443; 84484; 84540; 85007; 85025; 85651; 86140; 87040; 87077; 87081; 87088; 87186; 87207; 93005; 93306; 94760; 96365; 96375; 97116; 97161; 97530; 99285; A6590; G0378; J0360; J0696; J1644; J1938; J1956; J7030